=== PATIENT | male | born 1990 | race Caucasian/White ===

== ENCOUNTER 2016-06-23 15:04 | Emergency (ER) | payer SELFPAY ==
[~2016-06-23] VITALS: Ht 172.7 cm; Wt 78.0 kg
[~2016-06-23 15:04] MED LIST: KEFLEX500 MG PO; NO MEDS; TYLENOL REGULA325 MG PO
[2016-06-23 18:06] LABS: EOSINOPHIL (%) 0.4 % (0-5); HEMATOCRIT 51.2 % (38.0-50.0); IMMATURE GRANULOCYTE (%) 0.3 % (0.0-0.7); IMMATURE GRANULOCYTE COUNT 0.2 K/uL; LYMPHOCYTE COUNT 1.6 K/uL (1.0-2.8); MCH 31.4 PG (29.0-34.0); MCHC 34.6 G/DL (30.0-36.0); MCV 90.8 FL (86-99); MONOCYTE (%) 5.4 % (3-12); MONOCYTE COUNT 0.4 K/uL (0-0.8); NEUTROPHIL (%) 71.3 % (45-76); NEUTROPHIL COUNT 5.3 K/uL (1.8-6.4); PLATELET COUNT 277 K/uL (156-360); RBC DIS.WIDTH-CV 12.1 % (11.8-14.6); RBC DIS.WIDTH-SD 39.8 % (39-53); RED BLOOD COUNT 5.64 M/uL (4.00-5.50); WHITE BLOOD COUNT 7.4 K/uL (4.1-10.2)
[2016-06-23 18:17] LABS: CHLORIDE 102 mEq/L (99-109); POTASSIUM 4.2 mEq/L (3.7-5.4); SODIUM 139 mEq/L (136-147)
[2016-06-23 18:19] LABS: GLUCOSE 89 mg/dL (70-99)
[2016-06-23 18:20] LABS: ANION GAP 12 MEQ/L (2-14)
[2016-06-23 18:23] LABS: GFR ESTIMATE (CALCULATED) > 59 mL/min/
[2016-06-23 18:24] LABS: UREA NITROGEN (BUN) 12 mg/dL (9-23)
[2016-06-23] MEDS ORDERED: CLINDAMYCIN HC150 MG PO (19:17)
[2016-06-23 20:09] VITALS: BP 126/70
== END 2016-06-23 20:20 | disposition home or self-care (01) ==
LOC: EME 15:04 → EXP 15:04
PROVIDERS: Physician Assistant
DX: H05.012 Cellulitis of left orbit (principal)
CPT/HCPCS: 70481; 80048; 85025; 99281; 99285; J7120

== ENCOUNTER 2016-11-24 02:09 | Emergency (ER) | payer SELFPAY ==
[~2016-11-24] VITALS: Ht 172.7 cm; Wt 74.4 kg
[~2016-11-24 02:09] MED LIST changes: +CLINDAMYCIN HC150 MG PO
[2016-11-24 02:18] VITALS: BP 109/77
== END 2016-11-24 04:47 | disposition left against medical advice (07) ==
LOC: EME 02:09
DX: M79.671 Pain in right foot (principal); Z53.21 Procedure and treatment not carried out due to patient leaving prior to being seen by health care provider
CPT/HCPCS: 99281; 99283